=== PATIENT | female | born 2005 | race Caucasian/White ===

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

== ENCOUNTER 2024-04-06 13:44 | Outpatient (AMB) | payer OTHER, SELFPAY ==
[2024-04-06 13:52] VITALS: BP 100/60; BMI 23.8
--- NOTE | 2024-04-06 13:52 | MHC.OFFVIS ---
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: No Information Interpreted: clinical only Fruit Pitter: Fruit Pitter Present Allergies No Known Allergies [No Known Allergies*] Allergy (Verified 04/06/24 13:53) Medication List - Last Reconciled 04/06/24 by Neisha Haynes CNM etonogestrel (Nexplanon) subdermal Is last menstrual period known: No (nexplanon) Do you need a note to return to daycare/school/sports/work: No HPI HPI std testing: Details: Patient is here because her boyfriend and her split up for a month and he said it somebody else so he does not want to use condoms with her and he told her to go get herself checked during the visit texted her to tell her that not only did she need to get checked for chlamydia she needed to get treated for it because he just came back positive. And he wants her to picker machine operator her his medication for her on the way home. PFSH Family History Mother Lupus Social History Alcohol intake: current Patient Tobacco Use Status: Never used Tobacco Substance Use Type: Marijuana Female Reproductive History Menstrual Age of Menarche: 9 Duration of menses: 3-5 days control method: implanted Physical Exam Vital Signs: Last Vital Signs BP 100/60 04/06/24 13:52 BMI result Body Mass Index 23.8 External Female Exam: normal external appearance and normal appearance of the urethra Speculum Exam - Vagina: normal appearance of the vagina and normal vaginal discharge Speculum Exam - Cervix: normal appearance of the cervix and Cervical os closed Assessment & Plan Assessment & Plan (1) control counseling: Code(s): Z30.09 - Encounter for other general counseling and advice on contraception Category: Medical (2) Screen for sexually transmitted diseases: Code(s): Z11.3 - Encounter for screening for infections with a predominantly sexual mode of transmission Category: Medical (3) Chlamydia contact: Comment: Patient here for testing and during the visit her boyfriend texted her to get treated for chlamydia as contact... Code(s): Z20.2 - Contact with and (suspected) exposure to infections with a predominantly sexual mode of transmission Category: Medical Plan Reviewed the testing in screening for STIs she already has tests in the system ordered for HIV hep B hep C and syphilis. Testing done today for gonorrhea chlamydia trichomoniasis Gardnerella and Adeline. Her discharge normal but boyfriend text it her during the exam saying that he tested positive for chlamydia so she should also get treated. She is going to picker machine operator his medication at the [facility] in [place] so she wants her prescription sent there as well. She also already has an appointment in the future in May for test of cure and annual. She is doing well with the Nexplanon. I recommend them both starting and finishing the medicine at the same time and being she others check for that and using condoms for at least 2 weeks afterwards. See her in the fall for her test of cure visit. Medications: New doxycycline hyclate 100 mg PO BID 14 tabs 0RF Coding Level of Care Code Est Pt Level 3 (23341) Diagnoses control counseling Z30.09 Screen for sexually transmitted diseases Z11.3 Chlamydia contact Z20.2
== END 2024-04-06 14:56 | disposition home or self-care (01) ==
PROVIDERS: PCP Pediatrics; Visit Provider Advanced Practice Midwife
DX: Z30.09 Encounter for other general counseling and advice on contraception (principal); Z20.2 Contact with and (suspected) exposure to infections with a predominantly sexual mode of transmission
CPT/HCPCS: 99213

== ENCOUNTER 2024-04-06 13:44 | Outpatient (REF) | payer OTHER, SELFPAY ==
[2024-04-07 06:02] LABS: CT PCR NOT DETECTED (Not Detect.); NG PCR DETECTED (Not Detect.)
[2024-04-07 09:31] LABS: Bacterial Vaginosis PCR POSITIVE (Negative); Candida Group PCR NOT DETECTED (Not Detect); Candida glab krusei PCR NOT DETECTED (Not Detect); Trichomonas vaginalis PCR NOT DETECTED (Not Detect)
== END 2024-04-06 13:45 | disposition home or self-care (01) ==
LOC: HO.LAB 13:44
PROVIDERS: PCP Pediatrics; Visit Provider Advanced Practice Midwife
DX: N89.8 Other specified noninflammatory disorders of vagina (principal); Z20.2 Contact with and (suspected) exposure to infections with a predominantly sexual mode of transmission; Z30.09 Encounter for other general counseling and advice on contraception
CPT/HCPCS: 0352U; 87491; 87591; 99212

== ENCOUNTER 2024-04-08 10:00 | Outpatient (AMB) | payer OTHER, SELFPAY ==
--- NOTE | 2024-04-08 10:42 | AM.OFFVISNUR ---
Intake Visit Reasons: Injection Sap Sd Analyst Required: No Allergies No Known Allergies [No Known Allergies*] Allergy (Verified 04/06/24 13:53) Is last menstrual period known: No Post menopausal: No Patient : No Nursing Note Nelda is here for Ceftriaxone injection. Pt denies allergy to Ceftriaxone or Lidocaine. Pt tolerated injection well. She will schedule ROSELIA appt. in 3 months. Pt advised no IC x2 weeks after both parties have completed treatment. Pt is also being treated for Chlamydia as her partner has advised her that he was positive for Chlamydia. Pt further advised to use condoms until ROSELIA. She reports her partner is being tested for GC as well and he will need treatment. Pt verbalizes understanding and agrees with plan. No further questions. Office Meds ceftriaxone 500 mg solution for injection Performing Provider: Neisha Haynes CNM Performing Location: [facility] Administered by: Myesha Lindo on 04/08/24 10:50 Dose Route Admin Location Dispensed Lot Number Expiration Date [facility] Claims Vice President 500 mg IM RGM 1 ea [id number] 08/11/25 1384-7090-04 HOSPIRA Assessment & Plan Assessment & Plan Orders: Orders AMB Ceftriaxone Injection Today A54.9 - Gonococcal infection, unspecified, Z20.2 - Contact with and (suspected) exposure to infections with a predominantly sexual mode of transmission Medications: New ceftriaxone 500 mg IM ONCE 1 ea 0RF A54.9 - Gonococcal infection, unspecified, Z20.2 - Contact with and (suspected) exposure to infections with a predominantly sexual mode of transmission
== END 2024-04-08 14:46 | disposition home or self-care (01) ==
PROVIDERS: PCP Pediatrics; Visit Provider Advanced Practice Midwife
DX: Z20.2 Contact with and (suspected) exposure to infections with a predominantly sexual mode of transmission (principal); A54.9 Gonococcal infection, unspecified

== ENCOUNTER → 2024-04-08 10:00 | Outpatient (BNVA) | payer OTHER, SELFPAY | PROVIDERS: PCP Pediatrics; Visit Provider Advanced Practice Midwife | DX: Z20.2 Contact with and (suspected) exposure to infections with a predominantly sexual mode of transmission (principal); A54.9 Gonococcal infection, unspecified; Z30.09 Encounter for other general counseling and advice on contraception | CPT/HCPCS: 96372; 99211; J0696 ==

== ENCOUNTER 2025-07-28 13:15 | Outpatient (AMB) | payer OTHER, SELFPAY ==
[2025-07-28 13:17] VITALS: BP 96/58; BMI 24.0
--- NOTE | 2025-07-28 13:17 | A.OFFVIS_ITS ---
Vital Signs 07/28/25 13:17 Height 4 ft 10 in Weight 115 lb BMI 24.0 BP 96/58 L Blood Pressure Location Lt brachial Position Sitting Intake Visit Reasons: STD Screening Allergies No Known Allergies (No Known Allergies*) Allergy (Verified 04/06/24 13:53) Medication List - Last Reconciled 07/28/25 by Neisha Haynes CNM medroxyprogesterone (Depo-Provera) 150 mg IM [id number] HPI HPI STD Screening: Details: Patient is here because she wants to get checked for STDs but she thinks she actually might have yeast. She has been having sex with her boyfriend and that is been burning for a few days and it was also itchy at 1 point when it 1st started it actually hurt. She had been wearing tight on these before that so she thinks it might of been a yeast infection she did get some Monistat 1 and it helped a little bit but it did not help all that much. She would also like to get checked for STDs she did have chlamydia last year.. She is currently on Depo-Provera that she started a [facility] on 06/24/2025 she had had a Nexplanon for 2 years that she got at [facility] she had it for almost exactly 2 years and had it taken out last November at [facility] and she kept getting irregular bleeding that was unpredictable so in June she started on the Depo-Provera they told her it might help with that, She is also curious about how she would know if she was able to have babies.. Before she went on the Depo-Provera and the Nexplanon she said her periods were normal but when she was 14 years old and her sister got that is when her periods started being twice a month every month and they continued after that until she went on the Nexplanon they would come at the beginning and the end of the month. PFSH Family History Mother Lupus Social History Alcohol intake: current Patient Tobacco Use Status: Never used Tobacco Substance Use Type: Marijuana Female Reproductive History Menstrual Age of Menarche: 9 Duration of menses: other (no period due to depo) control method: progesterone injection Total pregnancies: 0 History of abnormal pap smear: No History of STI: Yes (chlamydia in the summer this year) Physical Exam Vital Signs: Last Vital Signs BP 96/58 L 07/28/25 13:17 BMI result Body Mass Index 24.0 Other: Normal external exam no lesions vagina is pink and moist with scant white discharge that has mild appearance of possible yeast though it is also possible that it has some residual Monistat cream from the dissolved suppository. Cervix is nulliparous pink smooth in appearance bimanual not necessary not done swabs taken for gonorrhea chlamydia trichomoniasis Adeline and bacterial vaginosis. External Female Exam: normal external appearance and normal appearance of the urethra Speculum Exam - Vagina: normal appearance of the vagina and normal vaginal discharge Speculum Exam - Cervix: normal appearance of the cervix and Cervical os closed Assessment & Plan Assessment & Plan (1) control counseling: Code(s): Z30.09 - Encounter for other general counseling and advice on contraception Category: Medical (2) Screen for sexually transmitted diseases: Comment: History of chlamydia and gonorrhea Code(s): Z11.3 - Encounter for screening for infections with a predominantly sexual mode of transmission Category: Medical (3) Vaginal burning: Code(s): N94.89 - Other specified conditions associated with female genital organs and menstrual cycle Category: Medical (4) Vaginal irritation: Code(s): N89.8 - Other specified noninflammatory disorders of vagina Category: Medical Plan Addressed all of the issues that were discussed in HPI. Reviewed her history with the Nexplanon and the Depo-Provera her next Depo is due in the 1st week of September and she does have that in her phone she gets it at [facility]. I reviewed with her that is a long as she is getting the care she needs that is the important thing it does not matter where she goes although it would be nice to have some continuity which she did try for but she could not get an appointment with us nevertheless she is getting the care she needs an that is the most important thing Discussed STIs and their role in potential problems with infertility down the road discussed ways of trying to convince partner to use condoms she is with the same partner that she was with when she had those infections last year. This time she thinks it is yeast and she did try with miconazole or Monistat 1 but it did not really help completely and she still has the discharge and little bit of burning uncomfortable feeling. I recommend no sex until she is better she found that the Monistat 7 cream burned her so she does not want to try that so I am going to give her 1 course of fluconazole and she may take 1 pill and if she is still uncomfortable in 3 days she should repeat it I also recommend she abstain from sex until she is feeling completely better. She will be due for her 1st Pap smear next year. I also discussed that since before she had started on anything her periods had been more or less normal that once she stopped being on control and life was stable for her and her situation with work and life and health and self-care and there were no other concerns if she was trying to get she would want to keep track of her periods for about a year and if she was getting very regular periods and did not get then she could seek more advice after that. Also discussed and that if she ever has any concerns for partner infidelity at all the if she wishes to use the rationale to convince him to use a condom of prevention of recurrent bacterial vaginosis that is sometimes that maybe helpful tool for her to consider, to help her in her [facility] for safer sex. Medications: New fluconazole may repeat second dose 72 hrs after first dose if symptoms persist 150 mg PO Q3D 2 tabs 0RF 2 doses Discontinued doxycycline hyclate Discontinued Reason: Patient Completed Course 100 mg PO BID 14 tabs 0RF Coding Level of Care Code Est Pt Level 3 (97266) Diagnoses control counseling Z30.09 Screen for sexually transmitted diseases Z11.3 Vaginal burning N94.89 Vaginal irritation N89.8
--- OUTSIDE RECORDS SUMMARY | 2025-07-28 17:25 | XMS_ITS ---
Author Name [facility] Organization Unknown History of Medication Use Medication Directions Dispensed Refills Start Date End Date Stat clotrimazole 05/10/2025 active fluconazole 05/10/2025 active doxycycline monohydrate 04/29/2025 active metronidazole 04/26/2025 active
== END 2025-07-28 15:12 | disposition home or self-care (01) ==
LOC: HO.HWSM 13:15
PROVIDERS: PCP Pediatrics; Visit Provider Advanced Practice Midwife
DX: Z30.09 Encounter for other general counseling and advice on contraception (principal); Z11.3 Encounter for screening for infections with a predominantly sexual mode of transmission; N94.89 Other specified conditions associated with female genital organs and menstrual cycle; N89.8 Other specified noninflammatory disorders of vagina
CPT/HCPCS: 99213

== ENCOUNTER → 2025-07-28 13:15 | Outpatient (BNVA) | payer OTHER, SELFPAY | PROVIDERS: PCP Pediatrics; Visit Provider Advanced Practice Midwife | DX: Z30.09 Encounter for other general counseling and advice on contraception (principal); Z20.2 Contact with and (suspected) exposure to infections with a predominantly sexual mode of transmission; N94.89 Other specified conditions associated with female genital organs and menstrual cycle; N89.8 Other specified noninflammatory disorders of vagina | CPT/HCPCS: 99212 ==

== ENCOUNTER 2025-07-28 16:45 | Outpatient (REF) | payer OTHER, SELFPAY ==
[2025-07-29 01:44] LABS: Bacterial Vaginosis PCR NEGATIVE (Negative); Candida Group PCR DETECTED (Not Detect); Candida glab krusei PCR NOT DETECTED (Not Detect); Trichomonas vaginalis PCR NOT DETECTED (Not Detect)
[2025-07-29 02:15] LABS: CT PCR NOT DETECTED (Not Detect.); NG PCR NOT DETECTED (Not Detect.)
== END 2025-07-28 16:46 | disposition home or self-care (01) ==
LOC: HO.LNP 16:45
PROVIDERS: Visit Provider Advanced Practice Midwife
DX: Z20.2 Contact with and (suspected) exposure to infections with a predominantly sexual mode of transmission (principal)
CPT/HCPCS: 81515; 87491; 87591